=== PATIENT | male | born 1965 | race Caucasian/White ===

== ENCOUNTER 2018-09-14 16:35 | Emergency (ER) | payer MEDICAID ==
[~2018-09-14] VITALS: Ht 170.2 cm; Wt 141.2 kg
[2018-09-14 16:46] VITALS: BP 137/86
[2018-09-14] MEDS ORDERED: ketorolac trometh. 30mg/ml inj. IM ONE (17:25)
[2018-09-14] MEDS ORDERED: ketorolac trometh inj. 60 MG/2 ML VIAL IM ONE (17:25)
[2018-09-14] MEDS ORDERED: orphenadrine citrate 60mg/2ml inj. IM ONE (17:25)
[2018-09-14] MEDS ORDERED: METH-360 PO (17:29)
[2018-09-14] MEDS ORDERED: IBUP-1985 PO (17:29)
[2018-09-14] MEDS ORDERED: HYDR-4383 PO (17:30)
== END 2018-09-14 17:58 | disposition home or self-care (01) ==
LOC: ER 16:36
DX: G89.29 Other chronic pain (principal); M54.5 Low back pain
CPT/HCPCS: 96372; 99283; J1885; J2360

== ENCOUNTER 2020-01-30 09:58 | Day surgery (SDC) | payer MEDICAID ==
[~2020-01-30] VITALS: Ht 170.2 cm; Wt 143.2 kg
[~2020-01-30 09:58] MED LIST: HYDR-4383 PO; IBUP-1985 PO; METH-360 PO
[2020-01-30 10:09] VITALS: BP 191/106
[2020-01-30] MEDS ORDERED: IBUP-1985 PO (10:23)
[2020-01-30] MEDS ORDERED: METH-360 PO (10:24)
[2020-01-30] MEDS ORDERED: BUPR150T8 PO (10:24)
[2020-01-30] MEDS ORDERED: ZOLP10TA PO (10:28)
[2020-01-30] MEDS ORDERED: MIDAZolam 5mg/5ml vial ONE (10:28)
[2020-01-30] MEDS ORDERED: fentaNYL/PF 50MCG/1 ML 2ML syringe ONE (10:28)
[2020-01-30] MEDS ORDERED: ATEN100T6 PO (10:29)
[2020-01-30] MEDS ORDERED: ATOR20TA66 PO (10:30)
[2020-01-30] MEDS ORDERED: BACL20TA PO (10:30)
[2020-01-30] MEDS ORDERED: BUPR150T6 PO (10:32)
[2020-01-30] MEDS ORDERED: CYAN1TAB16 PO (10:33)
[2020-01-30] MEDS ORDERED: GABA300C PO (10:34)
[2020-01-30] MEDS ORDERED: HYDR50TA3 PO (10:34)
[2020-01-30] MEDS ORDERED: LURA80TA3 PO (10:35)
[2020-01-30] MEDS ORDERED: METF-438 PO (10:36)
[2020-01-30] MEDS ORDERED: LISI10TA4 PO (10:36)
[2020-01-30] MEDS ORDERED: OMEP40CA13 PO (10:37)
[2020-01-30] MEDS ORDERED: BECL7.3A INH (10:38)
[2020-01-30] MEDS ORDERED: TIOT18CA3 (10:38)
[2020-01-30] MEDS ORDERED: VENL75CA61 PO (10:39)
[2020-01-30] MEDS ORDERED: ALBU18HF2 INH (10:40)
[2020-01-30] MEDS ORDERED: CYAN100T47 PO (10:40)
[2020-01-30] MEDS ORDERED: MV-M1TAB19 PO (10:42)
[2020-01-30 11:02] VITALS: BP 141/79
[2020-01-30 11:12] VITALS: BP 141/84
[2020-01-30 11:22] VITALS: BP 140/75
[2020-01-30 11:27] VITALS: BP 145/76
== END 2020-01-30 11:32 | disposition home or self-care (01) ==
LOC: GI LAB 09:58
PROVIDERS: ATTEND Internal Medicine Gastroenterology
DX: K92.1 Melena (principal); D12.0 Benign neoplasm of cecum; D12.5 Benign neoplasm of sigmoid colon; K62.1 Rectal polyp; K57.30 Diverticulosis of large intestine without perforation or abscess without bleeding; K64.8 Other hemorrhoids; E11.9 Type 2 diabetes mellitus without complications; I10 Essential (primary) hypertension; J44.9 Chronic obstructive pulmonary disease, unspecified; E66.9 Obesity, unspecified; Z68.42 Body mass index [BMI] 45.0-49.9, adult; Z87.891 Personal history of nicotine dependence; Z79.899 Other long term (current) drug therapy; Z79.84 Long term (current) use of oral hypoglycemic drugs
CPT/HCPCS: 45380; 45385; 99152; 99153; C1773; J2250; J3010; J7040; A4620

== ENCOUNTER 2023-07-11 08:17 | Day surgery (SDC) | payer MEDICAID ==
[~2023-07-11] VITALS: Ht 170.2 cm; Wt 105.0 kg
[~2023-07-11 08:17] MED LIST changes: +ALBU18HF2 INH; +ATEN100T6 PO; +ATOR20TA66 PO; +BACL20TA PO; +BECL7.3A INH; +BUPR150T23 PO; +CYAN100T47 PO; +CYAN1TAB16 PO; +GABA300C PO; -HYDR-4383 PO; +HYDR50TA4 PO; +LISI10TA27 PO; +LURA80TA2 PO; +METF-438 PO; +MV-M1TAB19 PO; +OMEP40CA21 PO; +TIOT18CA3; +VENL75CA61 PO; +ZOLP10TA PO
[2023-07-11] MEDS ORDERED: LIDOcaine 2% Viscous 15ml cup ONE (08:38)
[2023-07-11 08:43] VITALS: BP 150/88; PULSE 96; RESP 11
[2023-07-11] MEDS ORDERED: fentaNYL/PF 50MCG/1 ML 2ML syringe ONE (09:16)
[2023-07-11] MEDS ORDERED: MIDAZolam 1 MG/ML 5ML VIAL ONE (09:16)
[2023-07-11 09:36] VITALS: BP 131/89; PULSE 75; RESP 12; O2SAT 97
[2023-07-11 09:46] VITALS: BP 136/81; PULSE 76; RESP 13; O2SAT 94
[2023-07-11 09:56] VITALS: BP 137/81; PULSE 79; RESP 14; O2SAT 94
[2023-07-11 10:06] VITALS: BP 122/85; PULSE 74; RESP 13; O2SAT 94
== END 2023-07-11 10:16 | disposition home or self-care (01) ==
LOC: GI LAB 08:17
PROVIDERS: ATTEND Internal Medicine Gastroenterology
DX: R13.10 Dysphagia, unspecified (principal); K21.00 Gastro-esophageal reflux disease with esophagitis, without bleeding; K29.70 Gastritis, unspecified, without bleeding
CPT/HCPCS: 43239; 99152; J2250; J3010; J7030; Z7512; A4620

== ENCOUNTER 2024-12-19 11:02 | Outpatient (CLI) | payer MEDICAID ==
[2024-12-19] VITALS (21 sets, daily range): BP systolic 129–157; BP diastolic 62–95; PULSE 59–69
[~2024-12-19 11:02] MED LIST changes: -IBUP-1985 PO; +IBUP600T52 PO; -LISI10TA27 PO; -METH-360 PO; +ZOLP-679 PO; -ZOLP10TA PO
== END 2024-12-19 23:59 | disposition home or self-care (01) ==
LOC: CARD DIAG 11:02
PROVIDERS: ATTEND Internal Medicine Cardiovascular Disease
DX: R55 Syncope and collapse (principal)
CPT/HCPCS: 93660